=== PATIENT | female | born 1980 | race Caucasian/White ===

== ENCOUNTER 2020-06-14 14:33 | Emergency (ER) | payer MEDICAID ==
[~2020-06-14] VITALS: Ht 177.8 cm; Wt 66.0 kg
[2020-06-14 16:15] VITALS: BP 129/79
== END 2020-06-14 16:45 | disposition home or self-care (01) ==
LOC: ER 14:33
DX: F32.9 Major depressive disorder, single episode, unspecified (principal); M62.838 Other muscle spasm; I47.1 Supraventricular tachycardia; Z88.8 Allergy status to other drugs, medicaments and biological substances
CPT/HCPCS: 99283